=== PATIENT | female | born 1935 | race Caucasian/White ===

== ENCOUNTER → 2017-01-21 | Outpatient (CLI) | payer MEDICARE ==
--- NOTE | 2017-01-27 13:06 | Diagnostic Imaging Report ---
Bilateral screening mammogram 2D views with tomosynthesis The current study was also evaluated with a Computer Aided Detection (CAD) system. INDICATION: Screening. No current complaints stated on the questionnaire. COMPARISON: 01/15/16 FINDINGS: The breasts are composed of heterogeneously dense parenchyma which may decrease mammographic sensitivity. Punctate calcification in the right breast is seen. Allowing for technique and positional differences, no suspicious change is seen. IMPRESSION: Dense breasts with no definite change. ACR BI-RADS Category 2: Benign findings. Result letter will be mailed to the patient. Note: At least 10% of breast cancer is not imaged by mammography. Dictated by: Dictated on workstation # [id number]
== END ==
LOC: RAD 10:35
PROVIDERS: ATTEND Nurse Practitioner
DX: Z12.31 Encounter for screening mammogram for malignant neoplasm of breast (principal)
CPT/HCPCS: 77067

== ENCOUNTER → 2017-09-22 | Outpatient (CLI) | payer MEDICARE | LOC: RT 09:24 | PROVIDERS: ATTEND Internal Medicine | DX: R06.00 Dyspnea, unspecified (principal) | CPT/HCPCS: 94060; 94726; 94729 ==

== ENCOUNTER → 2017-10-07 | Outpatient (CLI) | payer MEDICARE ==
--- NOTE | 2017-10-07 08:56 | Diagnostic Imaging Report ---
INDICATION: Dyspnea and cough. Comparison made with prior examination 11/05/2011. FINDINGS: The heart size, mediastinal configuration, and pulmonary vascularity are within normal limits. There is no pleural effusion, pneumothorax, or pneumonia. The osseous structures are unremarkable. IMPRESSION: No acute cardiopulmonary abnormality. Dictated by: Dictated on workstation # [id number]
== END ==
LOC: RAD 08:24
PROVIDERS: ATTEND Internal Medicine
DX: R05 Cough (principal); R06.00 Dyspnea, unspecified
CPT/HCPCS: 71046

== ENCOUNTER → 2017-12-16 | Outpatient (CLI) | payer MEDICARE | LOC: CARD 10:22 | PROVIDERS: ATTEND Internal Medicine Interventional Cardiology | DX: E11.9 Type 2 diabetes mellitus without complications (principal); E78.5 Hyperlipidemia, unspecified; I10 Essential (primary) hypertension; R06.02 Shortness of breath | CPT/HCPCS: 93306 ==

== ENCOUNTER → 2018-01-27 | Outpatient (CLI) | payer MEDICARE ==
--- NOTE | 2018-01-27 14:25 | Diagnostic Imaging Report ---
INDICATION: Digital mammogram bilateral screening with 3-D tomosynthesis. This study was compared to the prior exam of 01/21/17, 01/15/16 and 01/16/15. At this time, there are no current complaints. The current study was also evaluated with a Computer Aided Detection (CAD) system. FINDINGS: The fibroglandular tissue in both breasts is heterogeneously dense. This does limit the sensitivity of this exam. Overall, there does not appear to have been any significant change when compared to the prior study. No primary or secondary sign of malignancy is noted. 3D tomographic images fail to show any sign of malignancy. IMPRESSION: There is no radiographic evidence for malignancy. ACR BI-RADS Category 1: Negative. Result letter will be mailed to the patient. Note: At least 10% of breast cancer is not imaged by mammography. Dictated by: Dictated on workstation # [id number]
== END ==
LOC: RAD 07:19
PROVIDERS: ATTEND Nurse Practitioner
DX: Z12.31 Encounter for screening mammogram for malignant neoplasm of breast (principal)
CPT/HCPCS: 77067

== ENCOUNTER → 2018-05-17 | Outpatient (CLI) | payer MEDICARE ==
[~2018-05-17] MED LIST: IOHEXOL 350 MG/ML 150 ML (OMNIPAQUE 350) VIAL IV ONE; NS 250 ML (IVPB) BAG IV ONE; RECEIVED CONTRAST (Hold Metformin) IV SCH
[2018-05-17 09:47] LABS: BASOPHILS % (AUTO) 1 % (0-10); EOSINOPHILS # (AUTO) 0.1 10^3/uL (0.0-0.3); EOSINOPHILS % (AUTO) 1 % (0-10); HEMATOCRIT 38 % (35-52); HEMOGLOBIN 12.6 G/DL (11.5-16.0); LYMPHOCYTES # (AUTO) 1.4 X 10^3 (1.0-4.0); LYMPHOCYTES % (AUTO) 25 % (12-44); MEAN CORPUSCULAR HEMOGLOBIN 28 PG (25-34); MEAN CORPUSCULAR HGB CONC 33 G/DL (32-36); MEAN CORPUSCULAR VOLUME 84 FL (80-99); MEAN PLATELET VOLUME 9.1 FL (7.4-10.4); MONOCYTES # (AUTO) 0.4 X 10^3 (0.0-1.0); MONOCYTES % (AUTO) 8 % (0-12); NEUTROPHILS # (AUTO) 3.7 X 10^3 (1.8-7.8); NEUTROPHILS % (AUTO) 65 % (42-75); PLATELET COUNT 253 10^3/uL (130-400); RED BLOOD COUNT 4.49 10^6/uL (4.35-5.85); RED CELL DISTRIBUTION WIDTH 12.9 % (10.0-14.5); WHITE BLOOD COUNT 5.7 10^3/uL (4.3-11.0)
[2018-05-17 10:14] LABS: ALBUMIN 4.5 GM/DL (3.2-4.5); BILIRUBIN,TOTAL 0.6 MG/DL (0.1-1.0); CALCIUM 10.1 MG/DL (8.5-10.1); CREATININE SERUM 0.98 MG/DL (0.60-1.30); POTASSIUM 4.2 MMOL/L (3.6-5.0); TOTAL PROTEIN 7.7 GM/DL (6.4-8.2)
--- NOTE | 2018-05-17 11:38 | Diagnostic Imaging Report ---
PROCEDURE: CT angiography of the chest with contrast. TECHNIQUE: Multiple contiguous axial images were obtained through the chest after uneventful bolus administration of intravenous contrast. 2D reconstructed CTA MIP acquisitions were also performed. INDICATION: Difficulty breathing. FINDINGS: There are no intraluminal pulmonary arterial filling defects. There are no findings of pulmonary arterial embolus. The thoracic aorta is patent and nonaneurysmal. No focal pulmonary consolidation or suspicious lung mass. There is no thoracic lymphadenopathy. No acute chest wall abnormality. Visualized upper abdomen appears nonacute. IMPRESSION: Negative for PE or other acute abnormalities. Dictated by: Dictated on workstation # [id number]
[2018-05-19 02:54] LABS: ALTERNARIA MOLD RAST <0.35 kU/L (<0.35); RAGWEED RAST <0.35 kU/L (<0.35)
== END ==
LOC: RAD 09:06
PROVIDERS: ATTEND Nurse Practitioner Family
DX: J45.909 Unspecified asthma, uncomplicated (principal)
CPT/HCPCS: 36415; 71275; 80053; 85025; 86003

== ENCOUNTER → 2019-01-30 | Outpatient (CLI) | payer MEDICARE ==
--- NOTE | 2019-01-30 12:45 | Diagnostic Imaging Report ---
Indication: Routine screening. Comparison is made with prior mammogram 01/27/2018 and 01/21/2017. 2-D and 3-D bilateral screening mammography was performed with CAD. Both breasts remain heterogeneously dense, limiting the sensitivity of mammography. The overall parenchymal pattern is stable. No mass is identified. No malignant-appearing microcalcifications are seen. The axillae are unremarkable. Impression: BI-RADS category 1 No mammographic features suspicious for malignancy are identified. ACR BI-RADS Category 1: Negative. Result letter will be mailed to the patient. Note: At least 10% of breast cancer is not imaged by mammography. Dictated by: Dictated on workstation # [id number]
== END ==
LOC: RAD 11:02
PROVIDERS: ATTEND Physician Assistant
DX: Z12.31 Encounter for screening mammogram for malignant neoplasm of breast (principal)
CPT/HCPCS: 77067

== ENCOUNTER 2019-04-20 09:14 | Outpatient (RCR) | payer MEDICARE | END 2019-05-11 | disposition home or self-care (01) | PROVIDERS: ATTEND Nurse Practitioner | DX: M54.42 Lumbago with sciatica, left side (principal) ==

== ENCOUNTER → 2020-05-24 | Outpatient (CLI) | payer MEDICARE ==
[~2020-05-24] MED LIST changes: +HOLD METFORMIN - RECEIVED CONTRAST 20 ML VIAL IV SCH; +IOHEXOL 350 MG/ML 100 ML (OMNIPAQUE 350) VIAL IV ONE; -IOHEXOL 350 MG/ML 150 ML (OMNIPAQUE 350) VIAL IV ONE; +NS 100 ML (IVPB) BAG IV ONE; -NS 250 ML (IVPB) BAG IV ONE; -RECEIVED CONTRAST (Hold Metformin) IV SCH
[2020-05-24 10:28] LABS: CREATININE SERUM 1.01 MG/DL (0.60-1.30)
--- NOTE | 2020-05-24 11:10 | Diagnostic Imaging Report ---
EXAMINATION: CT Chest with intravenous contrast. TECHNIQUE: Multiple contiguous axial images were obtained through the chest after the uneventful administration of intravenous contrast. All CT scans use one or more of the following dose optimizing techniques: automated exposure control, MA and/or KvP adjustment based on a patient size and exam type, or iterative reconstruction. HISTORY: Cough. COMPARISON: 05/17/2018. FINDINGS: There is mild bibasilar atelectasis as evidenced by groundglass and volume loss. No edema. No pleural effusion. No pneumothorax. No suspicious nodules. There is no axillary or supraclavicular lymphadenopathy. There is no mediastinal lymphadenopathy. Heart size is normal. There are no coronary artery calcifications. No pericardial effusion. Aorta is normal in caliber. Limited views of the upper abdomen are unremarkable. There are no suspicious osseous lesions. IMPRESSION: 1. Mild bibasilar atelectasis, otherwise clear lungs. Dictated by: Dictated on workstation # [id number]
== END ==
LOC: RAD 11:15
PROVIDERS: ATTEND Nurse Practitioner Family
DX: J98.11 Atelectasis (principal)
CPT/HCPCS: 36415; 71260; 82565; 84520

== ENCOUNTER 2022-03-04 08:38 | Emergency (ER) | payer MEDICARE ==
[~2022-03-04] VITALS: Ht 157 cm; Wt 50.0 kg
--- NOTE | 2022-03-04 09:11 | ED General ---
General Chief Complaint: Allergic Reaction Stated Complaint: RASH ON NECK AND FACE Nursing Triage Note: ARRIVED VIA AMB TO ROOM 8. STATES SHE RECEIVED A FLU SHOT YESTERDAY AND BROKE OUT IN A RASH ON HER FACE AND NECK AFTER. COMPLAINS OF SLIGHT SOA TODAY. HAS NOT TAKEN ANY MEDS FOR THE REACTION. Source of Information: Patient, Family Exam Limitations: No Limitations History of Present Illness Date Seen by Provider: Mar 04, 2022 Time Seen by Provider: 08:42 Initial Comments 86-year-old female with past medical history most notably for hypertension coming in due to concerns for an allergic reaction. She received the high-dose flu shot yesterday, and broke out in a rash on her face and neck that she noticed around 3 AM this morning. It is itchy, not painful, and she has never had anything like this happen before. She denies taking any new foods, any other new medications, no new detergents, and there is nothing else she can think of that would cause this. She is taken no medications for it as of yet. She did not take her medicines this morning including for her blood pressure. Allergies and Home Medications Allergies Coded Allergies: No Known Drug Allergies (Unverified , 11/11/17) Patient Home Medication List Home Medication List Reviewed: Yes Cetirizine HCl (Zyrtec) 10 Mg Tablet, 10 MG PO DAILY Prescribed by: ETHEL RYAN on 03/04/22 0938 Review of Systems Review of Systems Constitutional: No fever EENTM: No blurred vision Respiratory: no symptoms reported Cardiovascular: no symptoms reported Gastrointestinal: no symptoms reported Genitourinary: no symptoms reported Musculoskeletal: no symptoms reported Skin: rash Psychiatric/Neurological: No Symptoms Reported Hematologic/Lymphatic: No Symptoms Reported Immunological/Allergic: no symptoms reported All Other Systems Reviewed Negative Unless Noted: Yes Past Ifctbab-Qrdgvb-Wulkgz Hx Patient Social History Tobacco Use?: No Substance use?: No Alcohol Use?: No Physical Exam Vital Signs Vital Signs - First Documented 03/04/22 08:45 Temp 36.6 Pulse 89 Resp 16 B/P (MAP) 221/95 (137) Pulse Ox 98 O2 Delivery Room Air Capillary Refill : Less Than 3 Seconds Height, Weight, BMI Height: 5'2.00" Weight: 126lbs. 0.0oz. 57.380489ii; 20.00 BMI Method: General Appearance: No Apparent Distress, WD/WN Eyes: Bilateral Eye Normal Inspection HEENT: PERRL/EOMI, Normal ENT Inspection, Pharynx Normal Neck: Full Range of Motion, Normal Inspection, Non Tender, Supple Respiratory: Chest Non Tender, Lungs Clear, Normal Breath Sounds, No Accessory Muscle Use, No Respiratory Distress Cardiovascular: Regular Rate, Rhythm, No Edema, Normal Peripheral Pulses Gastrointestinal: Normal Bowel Sounds, Non Tender, Soft; No Distended, No Guarding Back: Normal Inspection Extremity: Normal Capillary Refill, Normal Inspection, Normal Range of Motion, Non Tender, No Calf Tenderness, No Pedal Edema Neurologic/Psychiatric: Alert, No Motor/Sensory Deficits, Normal Mood/Affect Skin: Normal Color, Warm/Dry, Rash (Erythema to the anterior neck going along the right jaw and cheek that is blanching and Nikolsky negative, no mucosal involvement) Lymphatic: No Adenopathy Progress/Results/Core Measures Suspected Sepsis SIRS Temperature: Pulse: 89 Respiratory Rate: 16 Blood Pressure 221 /95 Mean: 137 Results/Orders My Orders Orders - ETHEL RYAN MD Diphenhydramine Injection (Benadryl Inje (03/04/22 09:15) Famotidine Tablet (Pepcid Tablet) (03/04/22 09:15) Dexamethasone Tablet (Decadron Tablet) (03/04/22 09:06) Hydrochlorothiazide Cap/Tablet (Hctz Cap (03/04/22 09:15) Medications Given in ED Current Medications Medications Dose Ordered Sig/Donna Route Start Time Stop Time Status Last Admin Dose Admin Diphenhydramine HCl 25 mg ONCE ONCE IM 03/04/22 09:15 03/04/22 09:16 DC 03/04/22 09:17 25 MG Famotidine 20 mg ONCE ONCE PO 03/04/22 09:15 03/04/22 09:16 DC 03/04/22 09:17 20 MG Hydrochlorothiazide 25 mg ONCE ONCE PO 03/04/22 09:15 03/04/22 09:16 DC 03/04/22 09:25 25 MG Vital Signs/I&O 03/04/22 03/04/22 08:45 09:48 Temp 36.6 Pulse 89 77 Resp 16 16 B/P (MAP) 221/95 (137) 212/96 Pulse Ox 98 98 O2 Delivery Room Air Room Air Capillary Refill : Less Than 3 Seconds Blood Pressure Mean: 137 Progress Note : Progress Note 86-year-old female with above history coming in due to a rash that is itchy on her face after getting a flu shot yesterday. ABCs were intact and vitals are stable on presentation. Clinically she has no signs of anaphylaxis given is just 1 body system with a rash. She has no oral involvement, no mucosal involvement at all, is breathing well with no wheezing, tolerating p.o., and overall well-appearing. She was given an IM shot of Benadryl, p.o. Pepcid, and Decadron. On reassessment the rash is fading and she continues to be well- appearing. Possible this is allergic, although she did mention later that she did have a bee sting as well which could be the cause of it relatively recently. I believe she is stable for discharge with outpatient follow-up. She was sent home with strict return precautions Departure Impression Primary Impression: Allergic reaction Qualified Codes: T78.40XA - Allergy, unspecified, initial encounter Disposition: HOME, SELF-CARE Condition: Stable Departure-Patient Inst. Decision time for Depature: 09:37 Referrals: YAJAIRA FRIAS MD (PCP/Family) Primary Care Physician Patient Instructions: Allergic Reaction ED Add. Discharge Instructions: This is likely an allergic reaction. It could be from the flu shot versus the bee sting which is less likely given it was far enough away. He will begin taking Zyrtec every day for the next couple of weeks. If you begin feeling very short of breath and you are wheezing, he for like your throat is closing, significant amount of vomiting, or fever associated with this and I would want you to come back to the ER or call your regular doctor. You will be very sleepy for the next 12 hours or so due to the Benadryl, and be very careful when you are walking and try to have help at home until you are feeling normal. Scripts Cetirizine HCl (Zyrtec) 10 Mg Tablet 10 MG PO DAILY for 14 Days, #14 TAB Prov: ETHEL RYAN MD 03/04/22 ETHEL RYAN MD Mar 04, 2022 09:10
[2022-03-04] MEDS ORDERED: diphenhydrAMINE 50 MG/ML INJ (BENADRYL) IM ONE (09:15)
[2022-03-04] MEDS ORDERED: FAMOTIDINE 20 MG (PEPCID) TABLET PO ONE (09:15)
[2022-03-04] MEDS ORDERED: CETI10TA49 PO (09:38)
[2022-03-04 09:48] VITALS: BP 212/96
== END 2022-03-04 09:48 | disposition home or self-care (01) ==
LOC: EDUNIT# 08:38 → ER 08:40
DX: T78.40XA Allergy, unspecified, initial encounter (principal)
CPT/HCPCS: 99284

== ENCOUNTER 2022-03-08 09:15 | Emergency (ER) | payer MEDICARE ==
[~2022-03-08 09:15] MED LIST changes: +CETI10TA49 PO; -HOLD METFORMIN - RECEIVED CONTRAST 20 ML VIAL IV SCH; -IOHEXOL 350 MG/ML 100 ML (OMNIPAQUE 350) VIAL IV ONE; -NS 100 ML (IVPB) BAG IV ONE
--- NOTE | 2022-03-08 09:44 | ED General ---
General Chief Complaint: Skin/Wound Problems Stated Complaint: RASH ALL OVER Nursing Triage Note: PT AMB TO RM 6 WITH C/O ITCHY SKIN RASH ON ARMS AND NECK. PT SEEN HERE LAST WEEK FOR SAME SYMPTOMS AND GIVEN ALLERGY MEDICATION Source of Information: Patient Exam Limitations: No Limitations History of Present Illness Date Seen by Provider: Mar 08, 2022 Time Seen by Provider: 09:30 Initial Comments Patient is an 86-year-old female who presents to the emergency department with a chief complaint of itchy red rash to her anterior neck and bilateral forearms at the AC space. She states that her head feels "funny" since she woke up this morning. Patient relates that she had a "bee sting" a couple of days ago and was started on some cetirizine. She states that she has been feeling normal and fine until she woke up this morning. She does have a history of hypertension and takes hydrochlorothiazide. She lives alone. She denies headache but states that her head feels "not right". She denies vision changes speech difficulty or swallowing difficulty. She has no chest pain or palpitations. She denies nausea, abdominal pain, problems with bowel or bladder. No swelling in her legs. She states the rash has been present since the bee sting. She has not been applying any creams or ointments. No recent febrile illnesses. She states her normal blood pressure is around 130-140 systolic. All other review of systems reviewed and negative except as stated. Timing/Duration: 1-3 Hours Severity: Moderate Associated Systoms: Other (rash) Allergies and Home Medications Allergies Coded Allergies: No Known Drug Allergies (Unverified , 11/11/17) Patient Home Medication List Home Medication List Reviewed: Yes Cetirizine HCl (Zyrtec) 10 Mg Tablet, 10 MG PO DAILY Prescribed by: ETHEL RYAN on 03/04/22 0938 Review of Systems Review of Systems Constitutional: see HPI EENTM: no symptoms reported Respiratory: no symptoms reported Cardiovascular: no symptoms reported Gastrointestinal: no symptoms reported Genitourinary: no symptoms reported Musculoskeletal: no symptoms reported Skin: pruritus, rash Psychiatric/Neurological: Headache ("feels funny") All Other Systems Reviewed Negative Unless Noted: Yes Past Hdogoic-Cxrytn-Trrucm Hx Patient Social History Tobacco Use?: No Use of E-Cig and/or Vaping dev: No Substance use?: No Alcohol Use?: No Pt feels they are or have been: No Immunizations Up To Date Influenza Vaccine Up-to-Date: Yes; Up-to-Date First/Initial COVID19 Vaccinat: 2020 Past Medical History Surgery/Hospitalization HX: HTN Physical Exam Vital Signs Vital Signs - First Documented 03/08/22 09:22 Temp 36.5 Pulse 83 Resp 18 B/P (MAP) 227/109 (148) Capillary Refill : Height, Weight, BMI Height: 5'2.00" Weight: 126lbs. 0.0oz. 57.732598li; 20.00 BMI Method: General Appearance: No Apparent Distress, WD/WN, Thin Eyes: Bilateral Eye Normal Inspection, Bilateral Eye PERRL, Bilateral Eye EOMI Neck: Full Range of Motion Respiratory: Lungs Clear, Normal Breath Sounds, No Accessory Muscle Use, No Respiratory Distress Cardiovascular: Regular Rate, Rhythm, Systolic Murmur Gastrointestinal: Non Tender, Soft Extremity: Normal Capillary Refill, Normal Inspection, Normal Range of Motion, Non Tender, No Calf Tenderness, No Pedal Edema Neurologic/Psychiatric: Alert, Oriented x3, No Motor/Sensory Deficits, Normal Mood/Affect, tip printer II-XII Norm as Tested Skin: Normal Color, Warm/Dry, Other (Macular rash noted across the entirety of the anterior neck as well as in the AC space of both forearms. No hives are noted. No wounds or excoriations. No pustules or bullae) Progress/Results/Core Measures Suspected Sepsis SIRS Temperature: Pulse: 83 Respiratory Rate: 18 Laboratory Tests 03/08/22 09:45: White Blood Count 5.1 Blood Pressure 227 /109 Mean: 148 Laboratory Tests 03/08/22 09:45: Creatinine 1.09, Platelet Count 222 Results/Orders Lab Results Laboratory Tests Test 03/08/22 09:45 Range/Units White Blood Count 5.1 4.3-11.0 10^3/uL Red Blood Count 4.81 3.80-5.11 10^6/uL Hemoglobin 13.8 11.5-16.0 g/dL Hematocrit 40 35-52 % Mean Corpuscular Volume 83 80-99 fL Mean Corpuscular Hemoglobin 29 25-34 pg Mean Corpuscular Hemoglobin Concent 35 32-36 g/dL Red Cell Distribution Width 12.5 10.0-14.5 % Platelet Count 222 130-400 10^3/uL Mean Platelet Volume 9.6 9.0-12.2 fL Immature Granulocyte % (Auto) 0 % Neutrophils (%) (Auto) 63 42-75 % Lymphocytes (%) (Auto) 25 12-44 % Monocytes (%) (Auto) 7 0-12 % Eosinophils (%) (Auto) 3 0-10 % Basophils (%) (Auto) 1 0-10 % Neutrophils # (Auto) 3.2 1.8-7.8 10^3/uL Lymphocytes # (Auto) 1.3 1.0-4.0 10^3/uL Monocytes # (Auto) 0.4 0.0-1.0 10^3/uL Eosinophils # (Auto) 0.2 0.0-0.3 10^3/uL Basophils # (Auto) 0.0 0.0-0.1 10^3/uL Immature Granulocyte # (Auto) 0.0 0.0-0.1 10^3/uL Sodium Level 140 135-145 MMOL/L Potassium Level 4.0 3.6-5.0 MMOL/L Chloride Level 99 98-107 MMOL/L Carbon Dioxide Level 25 21-32 MMOL/L Anion Gap 16 H 5-14 MMOL/L Blood Urea Nitrogen 14 7-18 MG/DL Creatinine 1.09 0.60-1.30 MG/DL Estimat Glomerular Filtration Rate 49 BUN/Creatinine Ratio 13 Glucose Level 162 H 70-105 MG/DL Calcium Level 9.6 8.5-10.1 MG/DL My Orders Orders - АННА MARTINEZ MD Ed Iv/Invasive Line Start (03/08/22 09:40) Cbc With Automated Diff (03/08/22 09:40) Basic Metabolic Panel (03/08/22 09:40) Ekg Tracing (03/08/22 09:40) Labetalol Injection (Normodyne Injection (03/08/22 09:45) Hydralazine Injection (Apresoline Inject (03/08/22 11:30) General/Regular (03/08/22 Lunch) Medications Given in ED Current Medications Medications Dose Ordered Sig/Donna Route Start Time Stop Time Status Last Admin Dose Admin Hydralazine HCl 10 mg ONCE ONCE IV 03/08/22 11:30 03/08/22 11:31 DC 03/08/22 11:44 10 MG Labetalol HCl 10 mg ONCE ONCE IV 03/08/22 09:45 03/08/22 09:46 DC 03/08/22 09:56 10 MG Vital Signs/I&O 03/08/22 09:22 Temp 36.5 Pulse 83 Resp 18 B/P (MAP) 227/109 (148) Capillary Refill : Blood Pressure Mean: 148 Progress Note #1: Time: 11:32 Progress Note blood pressure had some down nicely with Labetalol 10mg however, it is creeping back up. Her HR is now 60, I considered a second dose, however do not want to precipitate bradycardia. Will add a little hydralazine and see if this further helps. Her labs look great, this is not a hypertensive emergency - she has no focal neuro deficits concerning for stroke like symptoms. EKG looks good. Will continue to monitor. Progress Note #2: Time: 12:05 Progress Note I reviewed the patient's visit from 03/04. SHe did also mention at that visit she had had a flu shot the day before sx appeared. She was given a shot of decadron in the ER. This may be what is keeping her BP elevated and will take time to come down. I have suggested benadryl and pepcid at home for the rash. REturn precautions and follow up with PCP. ECG Initial ECG Impression Date: Mar 08, 2022 Initial ECG Impression Time: 09:49 Initial ECG Rate: 61 Initial ECG Rhythm: Normal Sinus Initial ECG Intervals OK 194 QRS 113 QTc 420 Initial ECG Impression: Nonspecific Changes Departure Impression Primary Impression: Hypertensive urgency Additional Impression: Acute dermatitis Disposition: 01 HOME, SELF-CARE Condition: Stable Departure-Patient Inst. Referrals: YAJAIRA FRANCO MD (PCP/Family) Primary Care Physician Patient Instructions: Dermatitis, High Blood Pressure Emergencies Add. Discharge Instructions: Continue your daily medications as prescribed. You can take a little over the counter benadryl 1-2 tablets for itching and rash every 6-8 hours as needed. Also you need to be taking [id number] pepcid 20mg twice a day until you can see Dr Franco - this medication will work with the benadryl to help decrease the rash. If you develop a headache, weakness, chest pain, vomiting - please come back to the Emergency Department for re-evaluation. Please call Dr Franco's office on Wednesday for a follow up appointment for your rash. АННА MARTINEZ MD Mar 08, 2022 09:44
[2022-03-08] MEDS ORDERED: LABETALOL HCL 20 MG/4 ML VIAL IV ONE (09:45)
[2022-03-08 10:00] LABS: BASOPHILS % (AUTO) 1 % (0-10); EOSINOPHILS # (AUTO) 0.2 10^3/uL (0.0-0.3); EOSINOPHILS % (AUTO) 3 % (0-10); HEMATOCRIT 40 % (35-52); HEMOGLOBIN 13.8 g/dL (11.5-16.0); LYMPHOCYTES # (AUTO) 1.3 10^3/uL (1.0-4.0); LYMPHOCYTES % (AUTO) 25 % (12-44); MEAN CORPUSCULAR HEMOGLOBIN 29 pg (25-34); MEAN CORPUSCULAR HGB CONC 35 g/dL (32-36); MEAN CORPUSCULAR VOLUME 83 fL (80-99); MEAN PLATELET VOLUME 9.6 fL (9.0-12.2); MONOCYTES # (AUTO) 0.4 10^3/uL (0.0-1.0); MONOCYTES % (AUTO) 7 % (0-12); NEUTROPHILS # (AUTO) 3.2 10^3/uL (1.8-7.8); NEUTROPHILS % (AUTO) 63 % (42-75); PLATELET COUNT 222 10^3/uL (130-400); WHITE BLOOD COUNT 5.1 10^3/uL (4.3-11.0)
[2022-03-08 10:16] LABS: CALCIUM 9.6 MG/DL (8.5-10.1)
[2022-03-08 10:21] LABS: CREATININE SERUM 1.09 MG/DL (0.60-1.30)
[2022-03-08] MEDS ORDERED: hydrALAZINE (APESOLINE) 20 MG/ML VIAL IV ONE (11:30)
[2022-03-08 12:15] VITALS: BP 187/76
== END 2022-03-08 12:17 | disposition home or self-care (01) ==
LOC: EDUNIT# 09:15 → ER 09:16
DX: L30.9 Dermatitis, unspecified (principal); I16.0 Hypertensive urgency; I10 Essential (primary) hypertension; Z79.899 Other long term (current) drug therapy; Z28.311 Partially vaccinated for COVID-19
CPT/HCPCS: 36415; 80048; 85025; 93005

== ENCOUNTER 2022-11-22 16:24 | Emergency (ER) | payer MEDICARE ==
[~2022-11-22] VITALS: Ht 154 cm; Wt 47.0 kg
[2022-11-22] MEDS ORDERED: hydrALAZINE (APESOLINE) 20 MG/ML VIAL IV ONE (16:45)
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
[2022-11-22] MEDS ORDERED: AMLO-250 PO (17:04)
[2022-11-22] MEDS ORDERED: amLODIPine 5 MG (NORVASC) TAB PO STA (17:23)
[2022-11-22 18:07] VITALS: BP 177/85
== END 2022-11-22 18:07 | disposition home or self-care (01) ==
LOC: EDUNIT# 16:24 → ER 16:25
DX: I10 Essential (primary) hypertension (principal); Z79.899 Other long term (current) drug therapy